=== PATIENT | female | born 1995 | race Caucasian/White ===

== ENCOUNTER 2016-11-03 09:47 | Emergency (ER) | payer BC ==
[2016-11-03] MEDS ORDERED: ONDANSETRON 4 MG/2 ML VIAL IVP ONE (10:14)
[2016-11-03] MEDS ORDERED: NS 1,000 ML IV ONE ×3 (10:14→12:46)
[2016-11-03 10:26] LABS: % IMMATURE GRANULYOCYTES 0.5 % (0.0-1.1); ABSOLUTE IMMATURE GRANULOCYTES 0.05 10^3/uL (0.00-0.10); ADD DIFF? NO; ADD MORPH? NO; ADD SCAN? NO; ATYPICAL LYMPHOCYTE FLAG 10 (0-99); FRAGMENT RBC FLAG 0 (0-99); HEMATOCRIT 43.3 % (38.0-47.0); HEMOGLOBIN 14.2 g/dL (12.6-16.3); LEFT SHIFT FLG 0 (0-99); LIPEMIA HEMOLYSIS FLAG 80 (0-99); MEAN CELL HEMOGLOBIN 27.4 pg (27.9-34.1); MEAN CELL HEMOGLOBIN CONCENTR. 32.8 g/dL (32.4-36.7); MEAN CELL VOLUME 83.4 fL (81.5-99.8); MEAN PLATELET VOLUME 8.8 fL (8.7-11.7); PLATELET CLUMPS FLAG 0 (0-99); PLATELET COUNT 242 10^3/uL (150-400); RED BLOOD CELL COUNT 5.19 10^6/uL (4.18-5.33); RED CELL DISTRIBUTION WIDTH 12.8 % (11.5-15.2)
[2016-11-03 10:42] LABS: ANION GAP 10 mEq/L (8-16); CALCIUM 9.7 mg/dL (8.5-10.4); CARBON DIOXIDE 22 mEq/l (22-31); CHLORIDE 107 mEq/L (97-110); CREATININE 0.7 mg/dL (0.6-1.0); GLOMERULAR FILTRATION RATE > 60; GLUCOSE 94 mg/dL (70-100); POTASSIUM 4.1 mEq/L (3.5-5.2); SODIUM 139 mEq/L (134-144)
[2016-11-03] MEDS ORDERED: KETOROLAC 15 MG/1 ML SDV IVP ONE (11:04)
--- NOTE | 2016-11-03 11:30 | EDPHY ---
H & P Stated Complaint: flank pain, hx kidney infection Time Seen by Provider: 11/03/16 10:10 HPI/ROS: CHIEF COMPLAINT: fevers, chills, flank pain HISTORY OF PRESENT ILLNESS: 21-year-old female presents emergency department reporting she feels like she has a kidney infection. Patient states 2 weeks ago she had urinary frequency, urgency and dysuria, she went to the [facility] and they treated her with Macrobid for 3 days. Patient states that her urine culture did not grow anything. Patient says her urinary frequency and urgency and dysuria improved though 2 days ago she started with body aches, fatigue, nausea and bilateral flank pain. She reports continued urinary frequency. She complains of suprapubic tenderness, no diarrhea. Patient reports she is sexually active, she denies vaginal discharge, no history of STDs. REVIEW OF SYSTEMS: A comprehensive 10 point review of systems is otherwise negative aside from elements mentioned in the history of present illness. Source: Patient Exam Limitations: No limitations - Personal History LMP (Females 10-55): Extended Cycle BCP/Inj Current Tetanus/Diphtheria Vaccine: Yes Current Tetanus Diphtheria and Acellular Pertussis (TDAP): Yes - Medical/Surgical History Hx Asthma: No Hx Chronic Respiratory Disease: No Hx Diabetes: No Hx Cardiac Disease: No Hx Renal Disease: No Hx Cirrhosis: No Hx Alcoholism: No Hx HIV/AIDS: No Hx Splenectomy or Spleen Trauma: No Other PMH: PMh: kidney infection, chronic uti's. PSH: eye surgery, dental - Social History Smoking Status: Never smoked - Physical Exam Exam: Physical Exam Gen: Alert and Oriented, NAD HEENT: PERRL, moist mucous membranes NECK: no meningismus CV: Tachycardic rate and regular rhythm PULM: CTAB, no wheezes ABDOMEN: soft, mild suprapubic tenderness to palpation, BS present BACK: Mild bilateral CVA tenderness NEURO: Neurologically grossly intact EXTREMITIES: normal appearing SKIN: no rash or break in skin on exposed skin PSYCH: answers questions appropriately. Constitutional: Initial Vital Signs Temperature (C) 36.6 C 11/03/16 09:51 Heart Rate 128 H 11/03/16 09:51 Respiratory Rate 16 11/03/16 09:51 Blood Pressure 109/68 11/03/16 09:51 O2 Sat (%) 98 11/03/16 09:51 O2 Delivery Mode Room Air Allergies/Adverse Reactions: codeine Allergy (Verified 08/17/15 12:04) Home Medications: Medication Instructions Recorded Bcp 08/17/15 Cefdinir [Omnicef (*)] 300 mg PO BID #20 cap 08/17/15 LAMOTRIGINE 08/17/15 Ondansetron Odt [Zofran Odt 4 mg 4 mg PO Q4 PRN #6 tab 08/17/15 (*)] QUEtiapine FUMARATE 08/17/15 Cephalexin [Keflex] 500 mg PO TID 7 Days 11/03/16 Medical Decision Making ED Course/Re-evaluation: IV established, CBC, chemistry panel, urinalysis and test ordered. Patient is given 2 L of normal saline. [place] [id number] with a left shift, chemistry panel is unremarkable, test is negative, urinalysis is positive for nitrates, 5 -10 RBCs and 10-15 WBCs. 1 g of ceftriaxone is given IV. 1200 patient continues with heart rate 115. She is given a 3 L of normal saline. She reports she is feeling better. She denies nausea. She is tolerating p.o. well. 1330-heart rate down to 104, temperature of 37.0degrees. Patient will be discharged home with a prescription for Keflex. She will follow up with her primary care doctor this week for re-evaluation. Patient is given strict return precautions for any worsening symptoms, unable to keep any food or fluids down, new symptoms or concerns. - Data Points Laboratory Results: Laboratory Results 11/03/16 10:15 11/03/16 10:15 11/03/16 11/03/16 11/03/16 11:25 10:15 10:15 WBC RBC Hgb Hct MCV MCH MCHC RDW Plt Count MPV Neut % (Auto) Lymph % (Auto) [place] % (Auto) Eos % (Auto) Baso % (Auto) Nucleat RBC Rel Count Absolute Neuts (auto) Absolute Lymphs (auto) Absolute Monos (auto) Absolute Eos (auto) Absolute Basos (auto) Absolute Nucleated RBC Immature Gran % Immature Gran # Sodium 139 mEq/L mEq/L (134-144) Potassium 4.1 mEq/L mEq/L (3.5-5.2) Chloride 107 mEq/L mEq/L (97-110) Carbon Dioxide 22 mEq/l mEq/l (22-31) Anion Gap 10 mEq/L mEq/L (8-16) BUN 11 mg/dL mg/dL (7-23) Creatinine 0.7 mg/dL mg/dL (0.6-1.0) Estimated GFR > 60 Glucose 94 mg/dL mg/dL (70-100) Calcium 9.7 mg/dL mg/dL (8.5-10.4) Beta HCG, Qual NEGATIVE Urine Color YELLOW Urine Appearance HAZY Urine pH 7.0 (5.0-7.5) Ur Specific [place] 1.006 (1.002-1.030) Urine Protein NEGATIVE (NEGATIVE) Urine Ketones 1+ H (NEGATIVE) Urine Blood 2+ H (NEGATIVE) Urine Nitrate POSITIVE H (NEGATIVE) Urine Bilirubin NEGATIVE (NEGATIVE) Urine Urobilinogen NEGATIVE EU EU (0.2-1.0) Ur Leukocyte Esterase 1+ H (NEGATIVE) Urine RBC 5-10 /hpf H /hpf (0-3) Urine WBC 10-15 /hpf H /hpf (0-3) Ur Epithelial Cells 2+ /lpf H /lpf (NONE-1+) Urine Bacteria 4+ /hpf H /hpf (NONE SEEN) Urine Mucus 1+ /lpf /lpf (NONE-1+) Urine Glucose NEGATIVE (NEGATIVE) 11/03/16 10:15 WBC 10.81 10^3/uL H 10^3/uL (3.80-9.50) RBC 5.19 10^6/uL 10^6/uL (4.18-5.33) Hgb 14.2 g/dL g/dL (12.6-16.3) Hct 43.3 % % (38.0-47.0) MCV 83.4 fL fL (81.5-99.8) MCH 27.4 pg L pg (27.9-34.1) MCHC 32.8 g/dL g/dL (32.4-36.7) RDW 12.8 % % (11.5-15.2) Plt Count 242 10^3/uL 10^3/uL (150-400) MPV 8.8 fL fL (8.7-11.7) Neut % (Auto) 82.9 % H % (39.3-74.2) Lymph % (Auto) 8.5 % L % (15.0-45.0) [place] % (Auto) 7.2 % % (4.5-13.0) Eos % (Auto) 0.4 % L % (0.6-7.6) Baso % (Auto) 0.5 % % (0.3-1.7) Nucleat RBC Rel Count 0.0 % % (0.0-0.2) Absolute Neuts (auto) 8.97 10^3/uL H 10^3/uL (1.70-6.50) Absolute Lymphs (auto) 0.92 10^3/uL L 10^3/uL (1.00-3.00) Absolute Monos (auto) 0.78 10^3/uL 10^3/uL (0.30-0.80) Absolute Eos (auto) 0.04 10^3/uL 10^3/uL (0.03-0.40) Absolute Basos (auto) 0.05 10^3/uL 10^3/uL (0.02-0.10) Absolute Nucleated RBC 0.00 10^3/uL 10^3/uL (0-0.01) Immature Gran % 0.5 % % (0.0-1.1) Immature Gran # 0.05 10^3/uL 10^3/uL (0.00-0.10) Sodium Potassium Chloride Carbon Dioxide Anion Gap BUN Creatinine Estimated GFR Glucose Calcium Beta HCG, Qual Urine Color Urine Appearance Urine pH Ur Specific [place] Urine Protein Urine Ketones Urine Blood Urine Nitrate Urine Bilirubin Urine Urobilinogen Ur Leukocyte Esterase Urine RBC Urine WBC Ur Epithelial Cells Urine Bacteria Urine Mucus Urine Glucose Departure - Departure Disposition: Home, Routine, Self-Care Clinical Impression: Acute pyelonephritis Condition: Good Instructions: Kidney Infection (ED) Additional Instructions: Take 500 mg of Keflex 3 times a day for 7 days. Drink plenty of fluids. Take 650 mg of Tylenol every 8 hours as needed for body aches and fever, you can also take 600 mg of ibuprofen every 8 hours. You can alternate the 2 these so you're taking 1 or the other every 4 hours. Follow-up at work early this week for re-evaluation, return to the emergency department immediately for any worsening symptoms, vomiting, abdominal pain, any new symptoms or concerns. Referrals: ISABELL CEBALLOS [facility],. [Clinic] - As per Instructions Prescriptions: Cephalexin [Keflex] 500 mg PO TID 7 Days
[2016-11-03] MEDS ORDERED: ACETAMINOPHEN 500 MG TAB PO ONE (11:41)
[2016-11-03 12:28] LABS: COLOR YELLOW; LEUKOCYTE ESTERASE,URINE 1+ (NEGATIVE); NITRITE,URINE POSITIVE (NEGATIVE)
[2016-11-03] MEDS ORDERED: CEFTRIAXONE 1 GM/DEXTROSE/50 ML BAG IV ONE (12:39)
[2016-11-03 12:42] LABS: BACTERIA 4+ /hpf (NONE SEEN); MUCUS 1+ /lpf (NONE-1+)
[2016-11-03 12:46] VITALS: O2SAT 96
[2016-11-03 13:53] VITALS: BP 112/73; PULSE 72; RESP 16; TEMP 99
== END 2016-11-03 13:53 | disposition home or self-care (01) ==
DX: N10 Acute pyelonephritis (principal); B96.20 Unspecified Escherichia coli [E. coli] as the cause of diseases classified elsewhere
CPT/HCPCS: 96365; J0696; J1885; J2405

== ENCOUNTER 2017-11-05 16:40 | Emergency (ER) | payer BC, OTHER ==
[2017-11-05] MEDS ORDERED: ONDANSETRON 4 MG/2 ML VIAL IVP ONE (17:00)
[2017-11-05] MEDS ORDERED: NS 1,000 ML IV ONE ×2 (17:00→18:24)
--- NOTE | 2017-11-05 17:08 | EDPHY ---
H & P Stated Complaint: BIBA for episode of n/v/dizziness today while driving. zofran/ phenergan giv Time Seen by Provider: 11/05/17 16:53 HPI/ROS: CHIEF COMPLAINT: Dizzy, nauseous HISTORY OF PRESENT ILLNESS: The patient is a 22-year-old female with no significant past medical history comes to the emergency department the EMS for feeling dizzy nauseous and vomiting twice. 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 She has not been in direct contact with these chemicals. She was at work all morning and felt well. She then went on an errand for work and drove approximately 40 min. Towards the end of her drive she began feeling lightheaded and dizzy. She continued to feel this way at work and coworkers called EMS. She denies chest pain or shortness of breath. She denies palpitations. She did vomit twice nonbloody. No diarrhea. No abdominal pain. REVIEW OF SYSTEMS: Constitutional: denies: chills, fever, recent illness, recent injury EENTM: denies: blurred vision, double vision, nose congestion Respiratory: denies: cough, shortness of breath Cardiac: See HPI denies: chest pain, irregular heart rate, lightheadedness, palpitations Gastrointestinal/Abdominal: denies: abdominal pain, diarrhea, nausea, vomiting, blood streaked stools Genitourinary: denies: dysuria, frequency, hematuria, pain Musculoskeletal: denies: joint pain, muscle pain Skin: denies: lesions, rash, jaundice, bruising Neurological: See HPI denies: headache, numbness, paresthesia, tingling, dizziness, weakness Hematologic/Lymphatic: denies: blood clots, easy bleeding, easy bruising Immunologic/allergic: denies: HIV/AIDS, transplant EXAM: GENERAL: Well-appearing, well-nourished and in moderate distress. HEAD: Atraumatic, normocephalic. EYES: Pupils equal round and reactive to light, extraocular movements intact, sclera anicteric, conjunctiva are normal. ENT: No nystagmus, TMs normal, nares patent, oropharynx clear without exudates. Moist mucous membranes. NECK: Normal range of motion, supple without lymphadenopathy or JVD. LUNGS: Breath sounds clear to auscultation bilaterally and equal. No wheezes rales or rhonchi. HEART: Regular rate and rhythm without murmurs, rubs or gallops. ABDOMEN: Soft, nontender, normoactive bowel sounds. No guarding, no rebound. No masses appreciated. BACK: No CVA tenderness, no spinal tenderness, step-offs or deformities EXTREMITIES: Normal range of motion, no pitting or edema. No clubbing or cyanosis. NEUROLOGICAL: Cranial nerves II through XII grossly intact. Normal speech, normal gait. 5/5 strength, normal movement in all extremities, normal sensation PSYCH: Normal mood, normal affect. SKIN: Warm, dry, normal turgor, no visible rashes or lesions. Source: Patient Exam Limitations: No limitations - Personal History LMP (Females 10-55): Extended Cycle BCP/Inj Current Tetanus/Diphtheria Vaccine: Yes Current Tetanus Diphtheria and Acellular Pertussis (TDAP): Yes - Medical/Surgical History Hx Asthma: Yes Hx Chronic Respiratory Disease: No Hx Diabetes: No Hx Cardiac Disease: No Hx Renal Disease: No Hx Cirrhosis: No Hx Alcoholism: No Hx HIV/AIDS: No Hx Splenectomy or Spleen Trauma: No Other PMH: PMH: kidney infection, chronic UTI, bipolar, anxiety. PSH: eye surgery, dental - Family History Significant Family History: No pertinent family hx - Social History Smoking Status: Former smoker Alcohol Use: Sober Drug Use: None Constitutional: Initial Vital Signs Temperature (C) 36.4 C 11/05/17 16:54 Heart Rate 104 H 11/05/17 16:54 Respiratory Rate 16 11/05/17 16:54 Blood Pressure 138/89 H 11/05/17 16:54 O2 Sat (%) 95 11/05/17 16:54 O2 Delivery Mode Room Air Allergies/Adverse Reactions: banana Allergy (Verified 11/05/17 16:51) codeine Allergy (Verified 11/05/17 16:51) doxycycline Allergy (Verified 11/05/17 16:51) Home Medications: Medication Instructions Recorded Albuterol 11/05/17 Meclizine HCl [Meclizine HCl 25 mg 25 mg PO BID #14 tab 11/05/17 (RX,OTC)] Ondansetron Odt [Zofran Odt 4 mg 4 mg PO Q4 PRN #20 tab 11/05/17 (RX)] Seroquel 05/23/18 Zoloft 100mg (*) 11/05/17 Medical Decision Making ED Course/Re-evaluation: 6:30 p.m. the patient is feeling somewhat better but is still slightly dizzy. Discussed her lab work which is reassuring as is her EKG. We will continue to hydrate and observe. 7:30 p.m. The patient's status here. They are eager to leave. Symptoms are improving. I will give her meclizine to use as needed. I do not think that this is secondary to a toxic exposure. Differential Diagnosis: Partial list of the Differential diagnosis considered include but were not limited to; vertigo, nausea, vomiting, dehydration, gastritis, toxic exposures and although unlikely based on the history and physical exam, I also considered sepsis, CVA, dissection, arrhythmia. I discussed these differential diagnoses and the plan with the patient as well as the usual and expected course. The patient understands that the diagnosis is provisional and that in medicine we are not always correct and that further workup is often warranted. Usual and customary warnings were given. All of the patient's questions were answered. The patient was instructed to return to the emergency department should the symptoms at all worsen or return, otherwise to followup with the physician as we discussed. - Data Points Laboratory Results: Laboratory Results 11/05/17 17:50 11/05/17 17:50 11/05/17 11/05/17 11/05/17 17:50 17:50 17:50 WBC 6.88 10^3/uL 10^3/uL (3.80-9.50) RBC 4.59 10^6/uL 10^6/uL (4.18-5.33) Hgb 12.7 g/dL g/dL (12.6-16.3) Hct 39.2 % % (38.0-47.0) MCV 85.4 fL fL (81.5-99.8) MCH 27.7 pg L pg (27.9-34.1) MCHC 32.4 g/dL g/dL (32.4-36.7) RDW 13.1 % % (11.5-15.2) Plt Count 235 10^3/uL 10^3/uL (150-400) MPV 9.2 fL fL (8.7-11.7) Neut % (Auto) 59.2 % % (39.3-74.2) Lymph % (Auto) 28.6 % % (15.0-45.0) [place] % (Auto) 7.4 % % (4.5-13.0) Eos % (Auto) 3.8 % % (0.6-7.6) Baso % (Auto) 0.9 % % (0.3-1.7) Nucleat RBC Rel Count 0.0 % % (0.0-0.2) Absolute Neuts (auto) 4.07 10^3/uL 10^3/uL (1.70-6.50) Absolute Lymphs (auto) 1.97 10^3/uL 10^3/uL (1.00-3.00) Absolute Monos (auto) 0.51 10^3/uL 10^3/uL (0.30-0.80) Absolute Eos (auto) 0.26 10^3/uL 10^3/uL (0.03-0.40) Absolute Basos (auto) 0.06 10^3/uL 10^3/uL (0.02-0.10) Absolute Nucleated RBC 0.00 10^3/uL 10^3/uL (0-0.01) Immature Gran % 0.1 % % (0.0-1.1) Immature Gran # 0.01 10^3/uL 10^3/uL (0.00-0.10) Sodium 144 mEq/L mEq/L (135-145) Potassium 3.6 mEq/L mEq/L (3.3-5.0) Chloride 112 mEq/L H mEq/L (97-110) Carbon Dioxide 20 mEq/l L mEq/l (22-31) Anion Gap 12 mEq/L mEq/L (8-16) BUN 7 mg/dL mg/dL (7-23) Creatinine 0.7 mg/dL mg/dL (0.6-1.0) Estimated GFR > 60 Glucose 76 mg/dL mg/dL (70-100) Calcium 8.0 mg/dL L mg/dL (8.5-10.4) Total Bilirubin 0.3 mg/dL mg/dL (0.1-1.4) Conjugated Bilirubin 0.3 mg/dL mg/dL (0.0-0.5) Unconjugated Bilirubin 0.0 mg/dL mg/dL (0.0-1.1) AST 16 IU/L IU/L (14-46) ALT 28 IU/L IU/L (9-52) Alkaline Phosphatase 63 IU/L IU/L (38-126) Total Protein 6.2 g/dL L g/dL (6.3-8.2) Albumin 3.4 g/dL L g/dL (3.5-5.0) Lipase 70 IU/L IU/L (23-300) Beta HCG, Qual NEGATIVE Medications Given: Discontinued Medications Sodium Chloride (Ns) 1,000 mls @ 0 mls/hr IV EDNOW ONE; Wide Open PRN Reason: Protocol Stop: 11/05/17 17:01 Last Admin: 11/05/17 17:13 Dose: 1,000 mls Sodium Chloride (Ns) 1,000 mls @ 0 mls/hr IV EDNOW ONE; Wide Open PRN Reason: Protocol Stop: 11/05/17 18:25 Last Admin: 11/05/17 18:40 Dose: 1,000 mls Ondansetron HCl (Zofran) 4 mg IVP EDNOW ONE Stop: 11/05/17 17:01 Last Admin: 11/05/17 17:13 Dose: 4 mg Departure - Departure Disposition: Home, Routine, Self-Care Clinical Impression: Dehydration Vomiting Qualifiers: Vomiting type: unspecified Vomiting Intractability: non-intractable Nausea presence: with nausea Qualified Code(s): R11.2 - Nausea with vomiting, unspecified Condition: Fair Instructions: Acute Nausea and Vomiting (ED) Referrals: Patient,NotPresent [Unknown] - As per Instructions Prescriptions: Meclizine HCl [Meclizine HCl 25 mg (RX,OTC)] 25 mg PO BID #14 tab Ondansetron Odt [Zofran Odt 4 mg (RX)] 4 mg PO Q4 PRN #20 tab PRN Reason: Nausea & Vomiting
--- NOTE | 2017-11-05 17:42 | CPEKG ---
Heart Rate: 84 RR Interval: 714 P-R Interval: 148 QRSD Interval: 78 QT Interval: 384 QTC Interval: 454 P Dalton: -1 QRS Dalton: 43 T Wave Dalton: 38 EKG Severity - NORMAL ECG - EKG Impression: SINUS RHYTHM Electronically Signed By: Christina Marquez 05-Nov-2017 23:02:05
[2017-11-05 17:59] LABS: PLATELET COUNT 235 10^3/uL (150-400)
[2017-11-05 19:52] VITALS: BP 130/75
== END 2017-11-05 19:49 | disposition home or self-care (01) ==
LOC: EDUNIT#
DX: E86.0 Dehydration (principal); R11.2 Nausea with vomiting, unspecified; E86.9 Volume depletion, unspecified; J45.909 Unspecified asthma, uncomplicated; Z87.891 Personal history of nicotine dependence
CPT/HCPCS: 96374; J2405

== ENCOUNTER 2018-03-04 13:39 | Emergency (ER) | payer OTHER ==
--- NOTE | 2018-03-04 15:44 | EDPHY ---
H & P Stated Complaint: n/v Time Seen by Provider: 03/04/18 15:43 - Personal History LMP (Females 10-55): Extended Cycle BCP/Inj - Medical/Surgical History Hx Asthma: Yes Hx Chronic Respiratory Disease: No Hx Diabetes: No Hx Cardiac Disease: No Hx Renal Disease: No Hx Cirrhosis: No Hx Alcoholism: No Hx HIV/AIDS: No Hx Splenectomy or Spleen Trauma: No Other PMH: PMH: kidney infection, chronic UTI, bipolar, anxiety. PSH: eye surgery, dental - Social History Smoking Status: Current every day smoker Constitutional: Initial Vital Signs Temperature (C) 36.4 C 03/04/18 13:47 Heart Rate 88 03/04/18 13:47 Respiratory Rate 16 03/04/18 13:47 Blood Pressure 100/81 H 03/04/18 13:47 O2 Sat (%) 98 03/04/18 13:47 O2 Delivery Mode Room Air Allergies/Adverse Reactions: banana Allergy (Verified 03/04/18 13:46) codeine Allergy (Verified 03/04/18 13:46) doxycycline Allergy (Verified 03/04/18 13:46) walnut Allergy (Uncoded 03/04/18 13:46) Home Medications: Medication Instructions Recorded Albuterol 11/05/17 Seroquel 11/05/17 Zoloft 100mg (*) 11/05/17 Promethazine HCl [Phenergan 12.5mg 12.5 mg PO Q6-8PRN PRN #10 tablet 03/04/18 tab] Medical Decision Making - Diagnostics Imaging Results: Imaging Impressions Abdomen CT 03/04/18 15:50 Impression: 1. Suspect mild gastroenteritis and right lower quadrant mesenteric adenitis. 2. Trace pleural fluid in each posterior costophrenic angle. 3. Normal appearance of the appendix. 4. Trace L5-S1 anterolisthesis with spondylolysis. Findings were discussed with Ronni Vernon MD at 17:27, on 03/04/2018. Imaging: Discussed imaging studies w/ scallop raker Radiologist ED Course/Re-evaluation: CHIEF COMPLAINT: Nausea and vomiting HISTORY OF PRESENT ILLNESS: This patient is a 22 year old female complaining of nausea and vomiting. For the past several days, she has had congestion, cough, and cold symptoms. Today, she began feeling nauseous and started vomiting after lunch. Staff at work recommended she be evaluated. A coworker's family member recently had similar symptoms. She denies fever, headache, diarrhea, urinary complaints, lightheadedness, or other associated symptoms. REVIEW OF SYSTEMS: A comprehensive 10 system review of systems is otherwise negative aside from elements mentioned in the history of present illness and medical decision making. PHYSICAL EXAM: HR, BP, O2 Sat, RR. Temp noted General Appearance: Alert, well hydrated, appropriate, and non-toxic appearing. Head: Atraumatic without scalp tenderness or obvious injury Eyes: Pupils equal, round, reactive to light and accommodation, EOMI, no trauma , no injection. Ears: Clear bilaterally, no perforation, normal landmarks Nose: Atraumatic, no rhinorrhea, clear. Throat: There is no erythema or exudates, no lesions, normal tonsils, mucus membranes moist. Neck: Supple, 2+ carotid upstroke, nontender, no lymphadenopathy. Respiratory: No retractions, no distress, no wheezes, and no accessory muscle use. Lungs are clear to auscultation bilaterally. Cardiovascular: Regular rate and rhythm, no murmurs, rubs, or gallops. Bilateral carotid, radial, dorsalis pedis, and posterior tibial pulses intact. Good capillary refill all extremities. Gastrointestinal: Bilateral lower quadrant tenderness, right greater than left. Abdomen is soft, non-distended, no masses, no rebound, no guarding, no peritoneal signs. Musculoskeletal: Normal active ROM of all extremities, atraumatic. Neurological: Alert, appropriate, and interactive. The patient has normal DTRs and non-focal cranial nerves, motor, sensory, and cerebellar exam. Skin: No rashes, good turgor, no nodules on palpation. Past medical history:Kidney infection, UTIs, bipolar, anxiety. Past surgical history: Noncontributory Family history: Noncontributory Social history: Single. Lives in [place]. Student at [employer]. Does not abuse tobacco, drugs, or alcohol. DIFFERENTIAL DIAGNOSIS: The differential diagnosis for the patient's nausea and vomiting included but was not limited to gastroenteritis, gastritis, appendicitis, and medication side effect. MEDICAL DECISION MAKIN22 y/o female presents with one day history of nausea and vomiting. On exam, she has bilateral lower quadrant tenderness, right greater than left. Plan for CT abdomen/pelvis. Plan for labs including CBC, chemistries, liver, lipase, UA, BHCG. Plan to administer 4mg IV Zofran, 30mg IV Toradol, and 1L IV NS for symptom relief. Reviewed laboratory studies. Largely unremarkable. WBC normal, lipase within normal limits, BHCG negative. 17:[address] Rand, radiologist. CT abdomen/pelvis shows evidence of mesenteric adenitis, gastroenteritis. No evidence of appendicitis. See additional findings above. Reassessed patient. Discussed imaging and laboratory results. Plan to discharge home in good condition. She will take ibuprofen for pain. Follow up and return precautions discussed. She is comfortable with this plan. - Data Points Laboratory Results: Laboratory Results 03/04/18 16:10 03/04/18 16:10 03/04/18 03/04/18 03/04/18 16:10 16:10 16:10 WBC 8.97 10^3/uL 10^3/uL (3.80-9.50) RBC 5.48 10^6/uL H 10^6/uL (4.18-5.33) Hgb 15.1 g/dL g/dL (12.6-16.3) Hct 45.5 % % (38.0-47.0) MCV 83.0 fL fL (81.5-99.8) MCH 27.6 pg L pg (27.9-34.1) MCHC 33.2 g/dL g/dL (32.4-36.7) RDW 12.8 % % (11.5-15.2) Plt Count 321 10^3/uL 10^3/uL (150-400) MPV 8.9 fL fL (8.7-11.7) Neut % (Auto) 66.7 % % (39.3-74.2) Lymph % (Auto) 25.0 % % (15.0-45.0) [place] % (Auto) 4.8 % % (4.5-13.0) Eos % (Auto) 2.3 % % (0.6-7.6) Baso % (Auto) 0.9 % % (0.3-1.7) Nucleat RBC Rel Count 0.0 % % (0.0-0.2) Absolute Neuts (auto) 5.98 10^3/uL 10^3/uL (1.70-6.50) Absolute Lymphs (auto) 2.24 10^3/uL 10^3/uL (1.00-3.00) Absolute Monos (auto) 0.43 10^3/uL 10^3/uL (0.30-0.80) Absolute Eos (auto) 0.21 10^3/uL 10^3/uL (0.03-0.40) Absolute Basos (auto) 0.08 10^3/uL 10^3/uL (0.02-0.10) Absolute Nucleated RBC 0.00 10^3/uL 10^3/uL (0-0.01) Immature Gran % 0.3 % % (0.0-1.1) Immature Gran # 0.03 10^3/uL 10^3/uL (0.00-0.10) Sodium 140 mEq/L mEq/L (135-145) Potassium 4.1 mEq/L mEq/L (3.3-5.0) Chloride 108 mEq/L mEq/L (97-110) Carbon Dioxide 21 mEq/l L mEq/l (22-31) Anion Gap 11 mEq/L mEq/L (8-16) BUN 8 mg/dL mg/dL (7-23) Creatinine 0.7 mg/dL mg/dL (0.6-1.0) Estimated GFR > 60 Glucose 80 mg/dL mg/dL (70-100) Calcium 9.9 mg/dL mg/dL (8.5-10.4) Total Bilirubin 0.4 mg/dL mg/dL (0.1-1.4) Conjugated Bilirubin 0.2 mg/dL mg/dL (0.0-0.5) Unconjugated Bilirubin 0.2 mg/dL mg/dL (0.0-1.1) AST 25 IU/L IU/L (14-46) ALT 33 IU/L IU/L (9-52) Alkaline Phosphatase 88 IU/L IU/L (38-126) Total Protein 8.4 g/dL H g/dL (6.3-8.2) Albumin 4.8 g/dL g/dL (3.5-5.0) Lipase 104 IU/L IU/L (23-300) Beta HCG, Qual NEGATIVE Medications Given: Discontinued Medications Sodium Chloride (Ns) 1,000 mls @ 0 mls/hr IV EDNOW ONE; Wide Open PRN Reason: Protocol Stop: 03/04/18 15:50 Last Admin: 03/04/18 16:10 Dose: 1,000 mls Ketorolac Tromethamine (Toradol) 30 mg IVP EDNOW ONE Stop: 03/04/18 15:50 Last Admin: 03/04/18 16:11 Dose: 30 mg Ondansetron HCl (Zofran) 4 mg IVP EDNOW ONE Stop: 03/04/18 15:50 Last Admin: 03/04/18 16:11 Dose: Not Given Departure - Departure Disposition: Home, Routine, Self-Care Clinical Impression: Mesenteric adenitis, Gastroenteritis Condition: Good Instructions: Gastroenteritis (ED), Mesenteric Adenitis (ED) Additional Instructions: 1. Stay well hydrated. 2. Take 600-800mg ibuprofen every 6-8 hours as needed for pain. 3. Return to the ED for severe pain, uncontrollable vomiting or diarrhea, high fever, or other worsening of condition. Referrals: Jocelyn Pang MD [place] [place] - As per Instructions Prescriptions: Promethazine HCl [Phenergan 12.5mg tab] 12.5 mg PO Q6-8PRN PRN #10 tablet PRN Reason: Nausea/Vomiting, Use 1st Report Scribed for: Ronni Vernon Report Scribed by: Rayna Eubanks Date of Report: 03/04/18 Time of Report: 17:36
[2018-03-04] MEDS ORDERED: KETOROLAC 30 MG/1 ML SDV IVP ONE (15:49)
[2018-03-04] MEDS ORDERED: ONDANSETRON 4 MG/2 ML VIAL IVP ONE (15:49)
[2018-03-04] MEDS ORDERED: NS 1,000 ML IV ONE (15:49)
[2018-03-04 16:20] LABS: PLATELET COUNT 321 10^3/uL (150-400)
[2018-03-04] MEDS ORDERED: IOPAMIDOL (ISOVUE-300) 100 ML BTL ONE (16:41)
[2018-03-04 18:15] VITALS: BP 124/81
== END 2018-03-04 18:16 | disposition home or self-care (01) ==
DX: K52.9 Noninfective gastroenteritis and colitis, unspecified (principal); I88.0 Nonspecific mesenteric lymphadenitis
CPT/HCPCS: 96374; J1885; J2405; Q9967